=== PATIENT | female | born 1965 | race Caucasian/White ===

== ENCOUNTER 2016-12-26 22:10 | Emergency (ER) | payer OTHER ==
[~2016-12-26] VITALS: Ht 160 cm; Wt 68.5 kg
[2016-12-26 22:14] VITALS: Ht 160 cm; Wt 68.5 kg
[2016-12-26] MEDS ORDERED: HYDR-906 PO (23:13)
--- NOTE | 2016-12-26 23:15 | ERD ---
ER Documentation Chief Complaint Date/Time DATE: 12/26/16 TIME: 23:14 Chief Complaint toothache HPI 51-year-old female presents with 3 weeks of left upper dental pain. She has appointment with dentist Wednesday but her pain is not relieved with ibuprofen 800. She is also taking amoxicillin. Denies fever. ROS All systems reviewed and are negative except as per history of present illness. Medications Home Meds Active Scripts Hydrocodone/Acetaminophen (Lattimore 5-325 Tablet) 1 Each Tablet, 1 TAB PO Q6H Y for PAIN, #20 TAB Prov:CANDIDO GONZALEZ PA-C 12/26/16 Reported Medications [None] No Conflict Check 06/23/10 Allergies Allergies: Coded Allergies: No Known Allergies (Verified Allergy, Mild, 06/23/10) PMhx/Soc History of Surgery: Yes () Anesthesia Reaction: No Hx Neurological Disorder: Yes (MIGRAINE HEADACHE) Hx Respiratory Disorders: No Hx Cardiac Disorders: No Hx Psychiatric Problems: No Hx Miscellaneous Medical Probl: No Hx Alcohol Use: No Hx Substance Use: No Hx Tobacco Use: No Smoking Status: Never smoker FmHx Family History: No diabetes Physical Exam Vitals Vital Signs Date Time Temp Pulse Resp B/P Pulse Ox O2 Delivery O2 Flow Rate FiO2 12/26/16 22:14 98.5 72 20 148/97 98 Physical Exam General: well developed, well nourished, alert, nontoxic, no distress Head: normocephalic, atraumatic Eyes: PERRL, normal conjunctiva Neck: Supple, nontender, no lymphadenopathy, no midline tenderness Oropharynx: no tonsilar erythema or edema, uvula midline, no exudates, no kissing tonsils, no drooling, poor dentition Respiratory: Clear to auscaultation bilaterally, speaks in full sentences, no use of accesory muscles or labored breathing, no rales, ronchi, or wheezing Cardiovascular: RRR, No murmurs Results 24 hrs Current Medications Medications (Trade) Dose Ordered Sig/Dav Route PRN Reason Start Time Stop Time Status Last Admin Dose Admin Acetaminophen/ Hydrocodone Bitart (Lattimore (5/325)) 1 tab ONCE ONCE PO 12/26/16 23:30 12/26/16 23:31 Procedures/MDM Patient has dental pain. No evidence of peritonsillar abscess. She is already on amoxicillin and ibuprofen. She continues to have pain. She is given Lattimore here and discharged with Lattimore. She has appointment with dentist on Wednesday. Recommended this patient follow up with her primary care doctor within 48 hours or return to the emergency room for any worsening of symptoms. However this time I do believe there is suitable for outpatient management. I answered all their questions and they agreed with the plan and were discharged home. Departure Diagnosis: Primary Impression: Toothache Condition: Stable Patient Instructions: Dental Pain Referrals: [facility] ([facility]) Additional Instructions: Llame al doctor JR y connie john SANAZ PARA DENTRO DE 1-2 FOREMAN.Dgale a la secretaria que nosotros le instruimos hacer esta sanaz.Avise o llame si iqbal condicin se empeora antes de la sanaz. Regresa aqui si peor o no mejor. CANDIDO GONZALEZ PA-C Dec 26, 2016 23:15
[2016-12-26] MEDS ORDERED: ACETAMINOPHEN 325 MG TAB PO ONE (23:30)
[2016-12-26] MEDS ORDERED: HYDROCODONE/APAP (5/325) TAB PO ONE ×2 (23:30)
== END 2016-12-26 23:41 | disposition home or self-care (01) ==
LOC: FTE 22:10
DX: K08.89 Other specified disorders of teeth and supporting structures (principal)
CPT/HCPCS: 99283